=== PATIENT | male | born 1960 | race Caucasian/White ===

== ENCOUNTER 2022-10-14 04:15 | Day surgery (SDC) | payer BC ==
[2022-10-11 14:09] VITALS: BMI 30.1
[2022-10-14] MEDS ORDERED: ALBUTEROL SO4 HFA INHALER IH ONE (08:03)
[2022-10-14 09:13] VITALS: TEMP 98.8
[2022-10-14 10:59] VITALS: BP 128/74; PULSE 59; RESP 19
== END 2022-10-14 10:00 | disposition home or self-care (01) ==
LOC: JASU-ENDO 04:15
PROVIDERS: ATTEND Internal Medicine Gastroenterology
PROC: 0DBL8ZX Excision of Transverse Colon, Via Natural or Artificial Opening Endoscopic, Diagnostic (ICD-10-PCS; 2022-10-14)
PROC: 0DBN8ZX Excision of Sigmoid Colon, Via Natural or Artificial Opening Endoscopic, Diagnostic (ICD-10-PCS; 2022-10-14)
PROC: 0DB68ZX Excision of Stomach, Via Natural or Artificial Opening Endoscopic, Diagnostic (ICD-10-PCS; 2022-10-14)
PROC: 0DB78ZX Excision of Stomach, Pylorus, Via Natural or Artificial Opening Endoscopic, Diagnostic (ICD-10-PCS; 2022-10-14)
PROC: 0DBH8ZX Excision of Cecum, Via Natural or Artificial Opening Endoscopic, Diagnostic (ICD-10-PCS; principal; 2022-10-14 08:00)
DX: Z12.11 Encounter for screening for malignant neoplasm of colon (principal); D12.0 Benign neoplasm of cecum; D12.5 Benign neoplasm of sigmoid colon; D12.3 Benign neoplasm of transverse colon; K64.8 Other hemorrhoids; K57.30 Diverticulosis of large intestine without perforation or abscess without bleeding; K29.50 Unspecified chronic gastritis without bleeding; R19.5 Other fecal abnormalities
CPT/HCPCS: 82962; 88305-TC; 88342-TC